=== PATIENT | female | born 1940 | race Two or more races ===

== ENCOUNTER 2017-03-21 13:22 | Emergency (ER) | payer MEDICARE, MEDICAID ==
[~2017-03-21] VITALS: Ht 157.5 cm; Wt 61.2 kg
[2017-03-21 14:31] LABS: BASOPHIL % 0.3 % (0-2)
[2017-03-21 14:35] LABS: PLATELET COUNT 122 x10^3mcL (130-400); RED CELL DISTRIBUTION WIDTH 19.1 % (11.5-14.5)
[2017-03-21 14:55] LABS: CALCIUM 8.2 mg/dL (8.5-10.1); CARBON DIOXIDE 28.4 mmol/L (21-32); CHLORIDE SERUM 100 mmol/L (98-107); CREATININE SERUM 0.8 mg/dL (0.6-1.0); GLUCOSE SERUM 98 mg/dL (74-106); POTASSIUM SERUM 3.2 mmol/L (3.5-5.1); SODIUM SERUM 134 mmol/L (136-145)
[2017-03-21 15:02] LABS: ALKALINE PHOSPHATASE 98 U/L (46-116); ALT/SGPT 23 U/L (14-59); AST/SGOT 32 U/L (15-37); BILIRUBIN TOTAL 0.8 mg/dL (0.20-1.00); TOTAL PROTEIN, SERUM 7.8 g/dL (6.4-8.2)
[2017-03-21 15:04] LABS: ALBUMIN 2.6 g/dL (3.4-5.0)
[2017-03-21 17:19] LABS: microscopic required? YES; urine erythrocyte TRACE (NEGATIVE)
[2017-03-21 21:00] VITALS: BP 124/66
== END 2017-03-21 21:00 | disposition home or self-care (01) ==
LOC: ED 13:22 → EDBD 13:22 → ED 21:00
PROVIDERS: Specialist
DX: R10.84 Generalized abdominal pain (principal)
CPT/HCPCS: 36600; 83880; 87046; 87046-59; J3490

== ENCOUNTER 2017-07-27 15:26 | Emergency (ER) | payer MEDICAID, MEDICARE ==
[2017-07-27 16:22] LABS: BASOPHIL % 0.2 % (0-2)
[2017-07-27 16:34] LABS: ALKALINE PHOSPHATASE 138 U/L (46-116); ALT/SGPT 35 U/L (14-59); AST/SGOT 47 U/L (15-37); BILIRUBIN TOTAL 0.54 mg/dL (0.20-1.00); CALCIUM 8.8 mg/dL (8.5-10.1); CHLORIDE SERUM 102 mmol/L (98-107); CHOLESTEROL 156 mg/dL (<200); CREATININE SERUM 0.7 mg/dL (0.6-1.0); GLUCOSE SERUM 138 mg/dL (74-106); POTASSIUM SERUM 4.6 mmol/L (3.5-5.1); SODIUM SERUM 141 mmol/L (136-145)
[2017-07-27 16:35] LABS: PLATELET COUNT 109 x10^3mcL (130-400); RED CELL DISTRIBUTION WIDTH 19.2 % (11.5-14.5)
[2017-07-27 16:36] LABS: ALBUMIN 2.5 g/dL (3.4-5.0); TOTAL PROTEIN, SERUM 10.3 g/dL (6.4-8.2)
[2017-07-27 16:42] LABS: CARBON DIOXIDE 43.4 mmol/L (21-32)
[2017-07-27 16:46] VITALS: BP 86/41
[2017-07-27] MEDS ORDERED: POTASSIUM CHLO20 ME3 PO (18:44)
[2017-07-27] MEDS ORDERED: FUROSEMIDE20 MG PO (18:45)
[2017-07-27 19:45] LABS: CHOLESTEROL/HDL RATIO 2.7
[2017-07-27 19:51] LABS: FREE T4 1.03 ng/dL (0.76-1.46); FREE THYROXINE INDEX 2.3 ug/dL (1.4-4.5); T3 TOTAL 0.54 ng/mL; T4(THYROXINE) 5.8 ug/dL (4.7-13.3)
[2017-07-27 20:53] LABS: microscopic required? YES; urine erythrocyte 2+ (NEGATIVE)
[2017-07-27 21:00] VITALS: BP 104/58
[2017-07-27 23:00] VITALS: BP 117/53
[2017-07-28 02:00] VITALS: BP 136/61
== END 2017-07-28 02:58 | disposition expired ==
LOC: ED 15:26 → IC 17:44 → DU 17:44 → EDBEDREQ 17:49 → EDBEDREQSVC 17:49 → IC 22:27 → DU 23:31 → ED 07-28 02:58
PROVIDERS: Student in an Organized Health Care Education/Training Program
DX: J96.90 Respiratory failure, unspecified, unspecified whether with hypoxia or hypercapnia (principal); I50.9 Heart failure, unspecified; J18.9 Pneumonia, unspecified organism; J44.9 Chronic obstructive pulmonary disease, unspecified
CPT/HCPCS: 36600; 83880; 84439; 87491; 87591; 87804; G0480; J1170; J1956; J2060; J2270; J2543; J2704; J7030; J7040; Q0092